=== PATIENT | male | born 2000 | race Caucasian/White ===

== ENCOUNTER 2023-02-04 19:04 | Emergency (ER) | payer OTHER ==
[~2023-02-04] VITALS: Ht 162.6 cm; Wt 76.3 kg
[2023-02-04 19:43] VITALS: TEMP 98.2
[2023-02-04] MEDS ORDERED: IBUP-1022 PO (20:15)
[2023-02-04 20:17] LABS: BASO % 0.5 % (0.0-1.0); EOS # 0.2 10^3/uL (0.0-0.5); HEMATOCRIT 41.2 % (42.0-52.0); HEMOGLOBIN 13.9 g/dl (13.5-17.5); LYMPH # 1.7 10^3/uL (1.5-5.0); LYMPH % 29.9 % (24.0-44.0); MEAN CORPUSCULAR HEMOGLOBIN 28.1 pg (27.0-33.0); MEAN CORPUSCULAR HGB CONC 33.7 g/dl (32.0-36.5); MEAN CORPUSCULAR VOLUME 83.4 fl (80.0-96.0); MONO # 0.5 10^3/uL (0.0-0.8); NEUTROPHILS # 3.3 10^3/uL (1.5-8.5); NEUTROPHILS % 58.4 % (36.0-66.0); PLATELET COUNT, AUTOMATED 213 10^3/uL (150-450); RED BLOOD COUNT 4.94 10^6/uL (4.30-6.10); WHITE BLOOD COUNT 5.6 10^3/uL (4.0-10.0)
[2023-02-04 20:35] LABS: INR 1.06; PARTIAL THROMBOPLASTIN TIME 27.9 SECONDS (24.8-34.2); PROTHROMBIN TIME 13.5 SECONDS (12.5-14.5)
[2023-02-04] MEDS ORDERED: diphenhydrAMINE 50MG/ML VIAL IV ONE (21:45)
[2023-02-04] MEDS ORDERED: METOCLOPRAMIDE INJ 10MG/2ML VIAL IV ONE (21:45)
[2023-02-04] MEDS ORDERED: KETOROLAC 30 MG/ML 1ML VIAL IV ONE (21:45)
[2023-02-04] MEDS ORDERED: NS 1,000 ML IV ONE (21:45)
[2023-02-04 23:58] VITALS: BP 105/66; O2SAT 99
== END 2023-02-05 00:02 | disposition home or self-care (01) ==
LOC: M ED 19:04
DX: G43.909 Migraine, unspecified, not intractable, without status migrainosus (principal); R20.2 Paresthesia of skin; F17.290 Nicotine dependence, other tobacco product, uncomplicated
CPT/HCPCS: 70450; 70551; 80047; 85025; 85610; 85730; 93005; 96361; 96374; 99284; J1200; J1885; J2765

== ENCOUNTER 2024-07-31 04:40 | Emergency (ER) | payer OTHER ==
[~2024-07-31] VITALS: Ht 165.1 cm; Wt 72.7 kg
[~2024-07-31 04:40] MED LIST: IBUP-1022 PO
[2024-07-31] MEDS ORDERED: LORazepam 2 MG/ML 1ML VIAL IV PRN (04:50)
[2024-07-31] MEDS ORDERED: HYDR-161 PO (04:53)
[2024-07-31 05:44] LABS: BASO % 0.5 % (0.0-1.0); EOS # 0.2 10^3/uL (0.0-0.5); EOS % 3.3 % (0.0-3.0); HEMATOCRIT 40.9 % (42.0-52.0); HEMOGLOBIN 13.7 g/dl (13.5-17.5); LYMPH # 2.3 10^3/uL (1.5-5.0); LYMPH % 38.5 % (24.0-44.0); MEAN CORPUSCULAR HEMOGLOBIN 28.2 pg (27.0-33.0); MEAN CORPUSCULAR HGB CONC 33.5 g/dl (32.0-36.5); MEAN CORPUSCULAR VOLUME 84.3 fl (80.0-96.0); MONO # 0.5 10^3/uL (0.0-0.8); MONO % 7.6 % (2.0-8.0); NEUTROPHILS % 49.9 % (36.0-66.0); PLATELET COUNT, AUTOMATED 182 10^3/uL (150-450); RED BLOOD COUNT 4.85 10^6/uL (4.30-6.10); WHITE BLOOD COUNT 6.1 10^3/uL (4.0-10.0)
[2024-07-31 06:01] LABS: ETHYL ALCOHOL (ETHANOL) < 0.003 % (0.000-0.010)
[2024-07-31 06:03] LABS: ALKALINE PHOSPHATASE 69 U/L (40-129); ALT/SGPT 17 U/L (7.0-40); AST/SGOT 16 U/L (<34); BILIRUBIN,DIRECT < 0.1 MG/DL (<0.4); BILIRUBIN,TOTAL 0.3 MG/DL (0.3-1.2); BLOOD UREA NITROGEN 16 MG/DL (9-23); CALCIUM LEVEL 8.8 MG/DL (8.5-10.1); CARBON DIOXIDE LEVEL 26 MMOL/L (20-31); CHLORIDE LEVEL 106 MMOL/L (98-107); CREATININE FOR GFR 0.89 MG/DL (0.70-1.30); GLOMERULAR FILTRATION RATE > 90.0 (>60); GLUCOSE, FASTING 97 MG/DL (60-100); MAGNESIUM LEVEL 1.8 MG/DL (1.8-2.4); PHOSPHORUS LEVEL 4.2 MG/DL (2.5-4.9); POTASSIUM SERUM 4.1 MMOL/L (3.5-5.1); SODIUM LEVEL 140 MMOL/L (136-145); TOTAL PROTEIN 6.6 G/DL (5.7-8.2)
[2024-07-31 06:08] LABS: VENOUS BASE EXCESS -1.4 (-2.0-2.0); VENOUS HCO3 27.5 MMOL/L (23.0-27.0); VENOUS O2 SATURATION 60.8 % (60.0-80.0); VENOUS PARTIAL PRESSURE CO2 65.9 mmHg (38.0-50.0); VENOUS PARTIAL PRESSURE O2 34.5 mmHg (30.0-50.0); VENOUS PH 7.239 UNITS (7.330-7.430); VENOUS STANDARD HCO3 22.4 MMOL/L; VENOUS TOTAL CO2 29.6 MMOL/L (24.0-28.0)
[2024-07-31] MEDS: NS (Normal Saline) 0.9% 1,000 ML IV ONE (07:27)
[2024-07-31 08:06] LABS: BARBITURATES URINE NEGATIVE (NEGATIVE)
[2024-07-31 08:07] LABS: AMPHETAMINES LEVEL URINE NEGATIVE (NEGATIVE); BENZODIAZEPINES URINE NEGATIVE (NEGATIVE); CANNABINOIDS URINE NEGATIVE (NEGATIVE); COCAINE METABOLITE URINE NEGATIVE (NEGATIVE); METHADONE URINE NEGATIVE (NEGATIVE); OPIATES URINE NEGATIVE (NEGATIVE); PHENCYCLIDINE URINE NEGATIVE (NEGATIVE)
[2024-07-31 08:30] VITALS: BP 103/58; TEMP 97; O2SAT 99
== END 2024-07-31 08:38 | disposition home or self-care (01) ==
LOC: EDBD 04:40 → M ED 04:40
DX: R55 Syncope and collapse (principal); R56.9 Unspecified convulsions; Z79.1 Long term (current) use of non-steroidal anti-inflammatories (NSAID); Z79.899 Other long term (current) drug therapy

== ENCOUNTER 2024-12-01 21:37 | Emergency (ER) | payer OTHER ==
[~2024-12-01] VITALS: Ht 165.1 cm; Wt 72.7 kg
[~2024-12-01 21:37] MED LIST changes: +HYDR-161 PO; -IBUP-1022 PO; +IBUP600T42 PO
[2024-12-02] MEDS: KETOROLAC 30 MG/ML 1 ML VIAL IV ONE (02:07)
[2024-12-02] MEDS: METHOCARBAMOL 1,000 MG/10 ML VIAL IV ONE (02:07)
[2024-12-02] MEDS ORDERED: METH-1165 PO (03:57)
[2024-12-02] MEDS ORDERED: NAPR-837 PO (03:57)
[2024-12-02 04:11] VITALS: BP 109/72; TEMP 96.2; O2SAT 100
== END 2024-12-02 04:14 | disposition home or self-care (01) ==
LOC: M ED 21:37
DX: M51.26 Other intervertebral disc displacement, lumbar region (principal); F41.9 Anxiety disorder, unspecified; F17.290 Nicotine dependence, other tobacco product, uncomplicated; Z79.1 Long term (current) use of non-steroidal anti-inflammatories (NSAID); Z79.899 Other long term (current) drug therapy
CPT/HCPCS: 72131; 96374; 99284; J1885; J2800